=== PATIENT | male | born 1970 | race Caucasian/White ===

== ENCOUNTER 2018-06-25 22:06 | Emergency (ER) | payer OTHER ==
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
[2018-06-25] MEDS ORDERED: NS(*) 0.9% 1000 ML BAG 1,000 ML IV ONE (22:20)
[2018-06-25] MEDS ORDERED: ONDANSETRON 4 MG/2 ML VIAL IVP ONE (22:20)
[2018-06-25] MEDS ORDERED: fentaNYL CITR 100 MCG/2 ML AMP IVP ONE ×2 (22:20→23:30)
[2018-06-25] MEDS ORDERED: ZAFI20TA6 PO (22:25)
[2018-06-25] MEDS ORDERED: IOPAMIDOL 76% 150 ML INFUS BTL 150 ML ONE (22:35)
[2018-06-25 22:56] LABS: INR 1.05
[2018-06-25 23:12] LABS: PLATELET COUNT, AUTOMATED 273 K/uL (150-450)
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
[2018-06-26] MEDS ORDERED: oxyCODONE/ACETAMIN 5/325MG TH 2 TAB/BOTTLE PO ONE (00:25)
[2018-06-26] MEDS ORDERED: OXYC-865 PO (00:30)
[2018-06-26] MEDS ORDERED: oxyCODON/ACET (*)5/325MG (CII) 1 TAB TAB PO ONE (00:30)
[2018-06-26] MEDS ORDERED: IBUPROFEN 800 MG TAB PO ONE (00:30)
[2018-06-26 00:32] VITALS: BP 131/76
== END 2018-06-26 00:55 | disposition home or self-care (01) ==
LOC: ER 22:23
DX: S42.021A Displaced fracture of shaft of right clavicle, initial encounter for closed fracture (principal); S22.41XA Multiple fractures of ribs, right side, initial encounter for closed fracture; V86.99XA Unspecified occupant of other special all-terrain or other off-road motor vehicle injured in nontraffic accident, initial encounter
CPT/HCPCS: 70450; 71045; 71260; 72125; 74177; 83605; 85025; 85610; 85730; 96361; 96374; 96375; 96376; 99284; A4565; J2405; J3010; J7030; L0172; Q9967; 82040; 82247; 82310; 82374; 82435; 82565; 82947; 84075; 84132; 84155; 84295; 84450; 84460; 84520